=== PATIENT | female | born 1995 | race African-American/Black ===

== ENCOUNTER 2016-08-24 08:59 | Emergency (ER) | payer MEDICAID ==
[~2016-08-24] VITALS: Ht 172.7 cm; Wt 85.0 kg
[2016-08-24 09:00] VITALS: BP 120/61
[2016-08-24] MEDS ORDERED: LIDOCAINE HCL 1% 20ML VIAL (Pyxis) INJ MC ONE (11:45)
[2016-08-24] MEDS ORDERED: CEFTRIAXONE SODIUM 250 MG/VIAL IM ONE (11:45)
== END 2016-08-24 12:16 | disposition home or self-care (01) ==
LOC: ER 09:00
DX: L08.9 Local infection of the skin and subcutaneous tissue, unspecified (principal)
CPT/HCPCS: 96372; 99283; J0696; J3490

== ENCOUNTER 2016-08-27 12:29 | Emergency (ER) | payer MEDICAID ==
[~2016-08-27] VITALS: Ht 167.6 cm; Wt 70.0 kg
[2016-08-27 12:31] VITALS: BP 117/68
== END 2016-08-27 19:57 | disposition left against medical advice (07) ==
LOC: ER 12:42
DX: Z04.8 Encounter for examination and observation for other specified reasons (principal); Z53.21 Procedure and treatment not carried out due to patient leaving prior to being seen by health care provider

== ENCOUNTER 2016-08-31 13:27 | Emergency (ER) | payer MEDICAID ==
[~2016-08-31] VITALS: Ht 167.6 cm; Wt 64.0 kg
[2016-08-31 13:33] VITALS: BP 118/66
== END 2016-08-31 15:52 | disposition left against medical advice (07) ==
LOC: ER 14:11
DX: F12.10 Cannabis abuse, uncomplicated (principal); Z53.21 Procedure and treatment not carried out due to patient leaving prior to being seen by health care provider

== ENCOUNTER 2016-09-01 22:42 | Emergency (ER) | payer MEDICAID ==
[~2016-09-01] VITALS: Ht 172.7 cm; Wt 75.0 kg
[2016-09-01 22:51] VITALS: BP 131/53
== END 2016-09-02 02:48 | disposition left against medical advice (07) ==
LOC: ER 22:53
DX: Z53.21 Procedure and treatment not carried out due to patient leaving prior to being seen by health care provider (principal)

== ENCOUNTER 2016-09-02 10:37 | Emergency (ER) | payer MEDICAID ==
[~2016-09-02] VITALS: Ht 167.6 cm; Wt 80.0 kg
[2016-09-02 10:39] VITALS: BP 124/62
== END 2016-09-02 13:46 | disposition left against medical advice (07) ==
LOC: ER 10:42
DX: Z53.21 Procedure and treatment not carried out due to patient leaving prior to being seen by health care provider (principal)

== ENCOUNTER 2018-12-13 20:20 | Emergency (ER) | payer MEDICAID ==
[~2018-12-13] VITALS: Ht 172.7 cm; Wt 63.6 kg
[2018-12-14 01:28] LABS: CHLORIDE 110 mEq/L (98-107)
[2018-12-14 01:30] LABS: BASOPHILS % 0.5 % (0.0-2.0); EOSINOPHILS % 1.4 % (0.0-5.0); HEMATOCRIT. 38.4 % (36.0-48.0); HEMOGLOBIN. 12.8 g/dL (12.0-16.0); LYMPHOCYTES % 41.8 % (20.0-50.0); MEAN PLATELET VOLUME 8.1 fl (7.4-10.4); MONOCYTES % 9.2 % (2.0-8.0); NEUTROPHILS % 47.1 % (40.0-76.0); PLATELET 266 x1000/uL (130-400); RED BLOOD CELL COUNT 4.57 mill/uL (4.2-5.4); RED CELL DISTRIBUTION WIDTH 14.5 % (11.6-14.6)
[2018-12-14 01:33] LABS: ETHANOL BLOOD < 10 mg/dL
[2018-12-14 01:59] LABS: CLARITY URINE CLEAR (CLEAR); COLOR URINE YELLOW (YELLOW); KETONES URINE NEGATIVE (NEGATIVE); LEUKOCYTE ESTERASE URINE NEGATIVE (NEGATIVE); NITRITE URINE NEGATIVE (NEGATIVE); OCCULT BLOOD URINE NEGATIVE (NEGATIVE); PROTEIN URINE TRACE (NEGATIVE); SPECIFIC GRAVITY URINE 1.029 (1.005-1.030)
[2018-12-14 02:08] LABS: *AMPHETAMINES SCREEN URINE NEGATIVE (NEGATIVE); *BARBITURATES SCREEN URINE NEGATIVE (NEGATIVE); *BENZODIAZEPINES SCREEN URINE NEGATIVE (NEGATIVE); *COCAINE SCREEN URINE NEGATIVE (NEGATIVE); METHADONE URINE SCREEN NEGATIVE (NEGATIVE)
[2018-12-14 02:09] LABS: CANNABINOID URINE SCREEN NEGATIVE (NEGATIVE); OPIATES URINE SCREEN NEGATIVE (NEGATIVE); PHENCYCLIDINE URINE SCREEN NEGATIVE (NEGATIVE)
[2018-12-14 05:20] VITALS: BP 105/65
== END 2018-12-14 05:23 | disposition home or self-care (01) ==
LOC: ER 20:20
DX: R10.84 Generalized abdominal pain (principal); F17.200 Nicotine dependence, unspecified, uncomplicated; F41.9 Anxiety disorder, unspecified; F20.9 Schizophrenia, unspecified
CPT/HCPCS: 36415; 74018; 80305; 80307; 80320; 80329; 81003; 81025; 99284; G0480